=== PATIENT | male | born 1965 | race Hispanic/Latino ===

== ENCOUNTER 2020-10-18 07:24 | Emergency (ER) | payer BC ==
[~2020-10-18] VITALS: Ht 160 cm; Wt 75.0 kg
[~2020-10-18 07:24] MED LIST: NAPROSYN500 MG OR; TRAMADOL HCL50 MG OR
[2020-10-18] MEDS ORDERED: ALLOPURINOL100 MG PO (09:51)
[2020-10-18] MEDS ORDERED: LISINOP/HCTZ1 TA1 PO (09:51)
[2020-10-18] MEDS ORDERED: LOPID600 MG PO (09:52)
[2020-10-18] MEDS ORDERED: GLYBURID MCR1.5 MG PO (09:52)
[2020-10-18 09:59] LABS: HEMATOCRIT 48.5 % (39.0-50.0); HEMOGLOBIN 16.9 g/dl (14.0-18.0); IMMATURE GRANULOCYTES 0.6 % (0.0-5.0); MEAN CELL VOLUME 91.5 fL CALC (80.0-100.0); MEAN CORPUSCULAR HGB 31.9 pG CALC (26.0-32.0); MEAN CORPUSCULAR HGB CONC 34.8 g/dL CAL (32.0-36.0); NEUT# 4.96 thou/uL (1.82-7.42); RED BLOOD COUNT 5.3 mill/uL (4.70-6.10); RED CELL DISTRI WIDTH 11.9 % (11.5-15.5)
[2020-10-18 10:11] LABS: ALBUMIN 4.8 g/dL (3.2-5.0); ALKALINE PHOSPHATASE 84 u/l (38-126); ANION GAP 13 (6-22 (CALC)); BILIRUBIN, TOTAL 0.6 mg/dL (0.0-1.4); BUN 10 mg/dL (9-20); BUN/CREATININE RATIO 12 (12-20 (CALC)); CARBON DIOXIDE 25 mmol/l (22-30); CHLORIDE 103 mmol/l (95-108); CREATININE 0.9 mg/dL (0.7-1.3); GFR > 60 ML/MIN (>=60 (CALC)); GFR FOR AFR.AMER. > 60 ML/MIN (>=60 (CALC)); LIPASE 60 u/l (23-300); POTASSIUM 4.4 mmol/l (3.5-5.1); SGOT/AST 36 u/l (17-59); SODIUM 137 mmol/l (137-146); TOTAL PROTEIN 8.2 g/dL (6.3-8.2)
[2020-10-18 12:15] VITALS: BP 111/67
== END 2020-10-18 12:20 | disposition home or self-care (01) | DRG 103 ==
LOC: ED 07:24
PROVIDERS: Family Medicine
DX: R51.9 Headache, unspecified (principal); E11.9 Type 2 diabetes mellitus without complications; I10 Essential (primary) hypertension; E78.5 Hyperlipidemia, unspecified; M25.562 Pain in left knee; M25.561 Pain in right knee; Z79.84 Long term (current) use of oral hypoglycemic drugs

== ENCOUNTER 2021-05-10 08:47 | Day surgery (SDC) | payer BC, MEDICAID ==
[~2021-05-10] VITALS: Ht 154.9 cm; Wt 89.4 kg
[~2021-05-10 08:47] MED LIST changes: +ALLOPURINOL100 MG PO; +ASPIRIN81 MG PO; +GLYBURID MCR1.5 MG PO; +LISINOP/HCTZ1 TA1 PO; +LOPID600 MG PO
[2021-05-10 13:01] VITALS: BP 94/52
--- NOTE | 2021-05-10 14:58 | NUR ---
PER PHYSICIAN, PATIENT NOTIFIED OF COLONOSCOPY RESULTS, REPEAT X 10 YEARS, AND HIGH FIBER DIET INTAKE. PATIENT AGREED WITH INFORMATION GIVEN. VOICED NO CONCERNS AT TIME OF CALL. STATED DOING WELL FOLLOWING PROCEDURE. NOTE AND REPORT FORWARDED TO PRIMARY CARE FOR CONTINUITY OF CARE.
== END 2021-05-10 12:30 | disposition home or self-care (01) | DRG 951 ==
LOC: ENDO 08:47
PROVIDERS: ATTEND Surgery
PROC: 0DJD8ZZ Inspection of Lower Intestinal Tract, Via Natural or Artificial Opening Endoscopic (ICD-10-PCS; principal; 2021-05-10)
DX: Z12.11 Encounter for screening for malignant neoplasm of colon (principal); K50.10 Crohn's disease of large intestine without complications; K57.30 Diverticulosis of large intestine without perforation or abscess without bleeding; K64.8 Other hemorrhoids; I10 Essential (primary) hypertension; E11.9 Type 2 diabetes mellitus without complications; Z79.84 Long term (current) use of oral hypoglycemic drugs

== ENCOUNTER 2022-07-08 23:33 | Emergency (ER) | payer BC, MEDICAID ==
[~2022-07-08] VITALS: Ht 154.9 cm; Wt 88.0 kg
[2022-07-08 23:53] VITALS: BP 157/108
[2022-07-09 00:15] VITALS: BP 145/88
[2022-07-09 00:16] LABS: HEMOGLOBIN 15.3 g/dl (14.0-18.0); IMMATURE GRANULOCYTES 1.2 % (0.0-5.0); MEAN CELL VOLUME 91.9 fL CALC (80.0-100.0); MEAN CORPUSCULAR HGB 33.4 pG CALC (26.0-32.0); MEAN CORPUSCULAR HGB CONC 36.3 g/dL CAL (32.0-36.0); NEUT# 4.22 thou/uL (1.82-7.42); RED BLOOD COUNT 4.58 mill/uL (4.70-6.10); RED CELL DISTRI WIDTH 11.7 % (11.5-15.5)
[2022-07-09 00:22] LABS: HEMATOCRIT 42.1 % (39.0-50.0)
[2022-07-09] MEDS ORDERED: GLYBURID MCR1.5 MG PO (00:28)
[2022-07-09] MEDS ORDERED: VITAMIN D350000 UNIT PO (00:29)
[2022-07-09 00:30] VITALS: BP 150/87
[2022-07-09 00:30] LABS: ALBUMIN 4.5 g/dL (3.2-5.0); ALKALINE PHOSPHATASE 83 u/l (38-126); ANION GAP 16 (6-22 (CALC)); BILIRUBIN, TOTAL 0.4 mg/dL (0.0-1.4); BUN 13 mg/dL (9-20); BUN/CREATININE RATIO 16 (12-20 (CALC)); CARBON DIOXIDE 25 mmol/l (22-30); CHLORIDE 102 mmol/l (95-108); CREATININE 0.8 mg/dL (0.7-1.3); ETHYL ALCOHOL 0 mg/dl (0-30); GFR FOR AFR.AMER. > 60 ML/MIN (>=60 (CALC)); GFR OTHER RACES > 60 ML/MIN (>=60 (CALC)); LIPASE 64 u/l (23-300); POTASSIUM 3.6 mmol/l (3.5-5.1); SGOT/AST 33 u/l (17-59); SODIUM 139 mmol/l (137-146); TOTAL PROTEIN 7.6 g/dL (6.3-8.2)
[2022-07-09 00:44] LABS: MYOGLOBIN 26 ng/mL (0 - 121)
[2022-07-09 00:45] VITALS: BP 144/75
[2022-07-09 02:01] LABS: URINE BILIRUBIN - DIPSTICK NEGATIVE (NEGATIVE); URINE BLOOD DIPSTICK NEGATIVE (NEGATIVE); URINE COLOR YELLOW; URINE GLUCOSE - DIPSTICK NEGATIVE (NEGATIVE); URINE KETONE TRACE mg/dL (NEGATIVE); URINE LEUK ESTERASE NEGATIVE (NEGATIVE); URINE PH 6.5 (4.5-8.0); URINE PROTEIN - DIPSTICK NEGATIVE (NEG-TRACE); URINE UROBILINOGEN - DIPSTICK 0.2 E.U./dL (0.2)
[2022-07-09 02:02] LABS: URINE NITRITE - DIPSTICK NEGATIVE (Negative)
[2022-07-09] MEDS ORDERED: PROTONIX40 M2 PO (02:27)
[2022-07-09] MEDS ORDERED: CARAFATE1 GM PO (02:27)
[2022-07-09 02:30] VITALS: BP 144/75
== END 2022-07-09 02:40 | disposition home or self-care (01) | DRG 392 ==
LOC: ED 23:33
PROVIDERS: Family Medicine
DX: K29.20 Alcoholic gastritis without bleeding (principal); I10 Essential (primary) hypertension; E11.9 Type 2 diabetes mellitus without complications; Z79.84 Long term (current) use of oral hypoglycemic drugs
CPT/HCPCS: Q9967; S0164

== ENCOUNTER 2023-02-28 07:36 | Observation (INO) | payer BC, MEDICAID ==
[2023-02-28] VITALS (16 sets, daily range): BP systolic 111–201; BP diastolic 67–107
[~2023-02-28] VITALS: Ht 154.9 cm; Wt 86.8 kg
[~2023-02-28 07:36] MED LIST changes: +CARAFATE1 GM PO; +GLYBURIDE1.25 MG PO; +PROTONIX40 M2 PO; +VITAMIN D350000 UNIT PO
[2023-02-28] MEDS ORDERED: OMEPRAZOLE DR20 MG PO (08:00)
[2023-02-28] MEDS ORDERED: VITAMIN D5000 UNI1 PO (08:02)
[2023-02-28 08:09] LABS: BASO% 0.3 % (0-3); EOS% 0.3 % (0-8); HEMATOCRIT 44.8 % (39.0-50.0); HEMOGLOBIN 16.1 g/dl (14.0-18.0); IMMATURE GRANULOCYTES 0.3 % (0.0-5.0); LYMPH% 4.3 % (15-41); MEAN CELL VOLUME 90.5 fL CALC (80.0-100.0); MEAN CORPUSCULAR HGB 32.5 pG CALC (26.0-32.0); MEAN CORPUSCULAR HGB CONC 35.9 g/dL CAL (32.0-36.0); MONO% 7.8 % (2-13); NEUT# 12.9 thou/uL (1.82-7.42); RED BLOOD COUNT 4.95 mill/uL (4.70-6.10); RED CELL DISTRI WIDTH 11.7 % (11.5-15.5)
[2023-02-28 08:33] LABS: ALBUMIN 4.5 g/dL (3.2-5.0); ALKALINE PHOSPHATASE 69 u/l (38-126); BUN 15 mg/dL (9-20); BUN/CREATININE RATIO 20 (12-20 (CALC)); CARBON DIOXIDE 25 mmol/l (22-30); CHLORIDE 94 mmol/l (95-108); CREATININE 0.7 mg/dL (0.7-1.3); GFR FOR AFR.AMER. > 60 ML/MIN (>=60 (CALC)); GFR OTHER RACES > 60 ML/MIN (>=60 (CALC)); LIPASE 36 u/l (23-300); POTASSIUM 3.9 mmol/l (3.5-5.1); SGOT/AST 25 u/l (17-59); TOTAL PROTEIN 7.6 g/dL (6.3-8.2)
[2023-02-28 08:35] LABS: ANION GAP 16 (6-22 (CALC)); BILIRUBIN, TOTAL 1.7 mg/dL (0.2-1.3); SODIUM 131 mmol/l (137-146)
[2023-02-28 10:17] LABS: URINE BLOOD DIPSTICK TRACE-LYSED (NEGATIVE); URINE GLUCOSE - DIPSTICK 100 mg/dL (NEGATIVE); URINE KETONE 15 mg/dL (NEGATIVE); URINE LEUK ESTERASE NEGATIVE (NEGATIVE); URINE PROTEIN - DIPSTICK 100 mg/dL (NEG-TRACE)
[2023-02-28 10:23] LABS: URINE BILIRUBIN - DIPSTICK NEGATIVE (NEGATIVE); URINE COLOR AMBER; URINE NITRITE - DIPSTICK NEGATIVE (Negative)
[2023-02-28 10:29] LABS: URINE WBC 0-2 WBC/hpf (0-5)
[2023-02-28 10:30] LABS: URINE MUCUS FEW hpf (NONE-FEW); URINE SQUAMOUS EPITHELIAL CELL FEW EPI/hpf (0-FEW); URINE TRANSITIONAL EPI. CELLS FEW hpf
[2023-03-01] VITALS (10 sets, daily range): BP systolic 106–157; BP diastolic 49–96
[2023-03-01 05:40] LABS: ALBUMIN 3.7 g/dL (3.2-5.0); BILIRUBIN, TOTAL 1.3 mg/dL (0.2-1.3); TOTAL PROTEIN 6.8 g/dL (6.3-8.2)
[2023-03-02 00:03] VITALS: BP 134/66
[2023-03-02 04:17] VITALS: BP 123/55
[2023-03-02 05:47] LABS: ALKALINE PHOSPHATASE 54 u/l (38-126); BUN 21 mg/dL (9-20); BUN/CREATININE RATIO 24 (12-20 (CALC)); CARBON DIOXIDE 22 mmol/l (22-30); CREATININE 0.9 mg/dL (0.7-1.3); GFR FOR AFR.AMER. > 60 ML/MIN (>=60 (CALC)); GFR OTHER RACES > 60 ML/MIN (>=60 (CALC)); POTASSIUM 3.9 mmol/l (3.5-5.1); SGOT/AST 28 u/l (17-59); SODIUM 137 mmol/l (137-146)
[2023-03-02 05:49] LABS: BASO% 0.2 % (0-3); IMMATURE GRANULOCYTES 0.4 % (0.0-5.0); LYMPH% 5.3 % (15-41); MEAN CELL VOLUME 94.3 fL CALC (80.0-100.0); MEAN CORPUSCULAR HGB 33.1 pG CALC (26.0-32.0); MEAN CORPUSCULAR HGB CONC 35.1 g/dL CAL (32.0-36.0); MONO% 7.8 % (2-13); NEUT# 7.9 thou/uL (1.82-7.42); NEUT% 86.3 % (42-76); RED BLOOD COUNT 3.66 mill/uL (4.70-6.10); RED CELL DISTRI WIDTH 12.4 % (11.5-15.5)
[2023-03-02 05:51] LABS: HEMATOCRIT 34.5 % (39.0-50.0); HEMOGLOBIN 12.1 g/dl (14.0-18.0)
[2023-03-02 05:52] LABS: ALBUMIN 2.8 g/dL (3.2-5.0); ANION GAP 9 (6-22 (CALC)); BILIRUBIN, TOTAL 0.4 mg/dL (0.2-1.3); CHLORIDE 110 mmol/l (95-108); TOTAL PROTEIN 5.2 g/dL (6.3-8.2)
[2023-03-02 06:24] VITALS: BP 99/50
[2023-03-02 08:17] VITALS: BP 122/72
[2023-03-02 10:58] VITALS: BP 134/76
[2023-03-02] MEDS ORDERED: PERCOCET 5/325M1 TAB PO (12:46)
== END 2023-03-02 13:15 | disposition home or self-care (01) | DRG 419 ==
LOC: ED 07:36 → ED-I 09:50 → ED 10:05 → MS2 10:06
PROVIDERS: Family Medicine; ADMIT Surgery; ATTEND Surgery
PROC: 0FT44ZZ Resection of Gallbladder, Percutaneous Endoscopic Approach (ICD-10-PCS; principal; 2023-03-01)
PROC: BF001ZZ Plain Radiography of Bile Ducts using Low Osmolar Contrast (ICD-10-PCS; 2023-03-01)
DX: K80.00 Calculus of gallbladder with acute cholecystitis without obstruction (principal); K82.A1 Gangrene of gallbladder in cholecystitis; I10 Essential (primary) hypertension; E11.9 Type 2 diabetes mellitus without complications; M10.9 Gout, unspecified; E66.9 Obesity, unspecified; Z79.84 Long term (current) use of oral hypoglycemic drugs
CPT/HCPCS: G0378; J0131; J1100; J1610; J2710; Q9966

== ENCOUNTER 2025-01-05 07:47 | Emergency (ER) | payer OTHER, BC ==
[~2025-01-05] VITALS: Ht 154.9 cm; Wt 72.5 kg
[~2025-01-05 07:47] MED LIST changes: +OMEPRAZOLE DR20 MG PO; +PERCOCET 5/325M1 TAB PO; +VITAMIN D5000 UNI1 PO
[2025-01-05 07:54] VITALS: BP 182/97
[2025-01-05 08:00] VITALS: BP 153/89
[2025-01-05] MEDS ORDERED: KETOROLAC TROMETHAMINE 30 MG/ML SDV IM ONE (08:00)
[2025-01-05 08:30] VITALS: BP 132/78
[2025-01-05 09:00] VITALS: BP 131/79
[2025-01-05 09:21] VITALS: BP 131/79
[2025-01-05] MEDS ORDERED: EC-NAPROXEN500 MG PO (09:22)
== END 2025-01-05 09:32 | disposition home or self-care (01) | DRG 556 ==
LOC: ED 07:47
DX: M79.671 Pain in right foot (principal); I10 Essential (primary) hypertension; E11.9 Type 2 diabetes mellitus without complications; Z79.84 Long term (current) use of oral hypoglycemic drugs